=== PATIENT | male | born 1955 | race Caucasian/White ===

== ENCOUNTER → 2018-12-19 10:13 | Outpatient (CLI) | payer MEDICAID ==
[~2018-12-19 10:13] MED LIST: ALBUTEROL SULF8.5 GM INH; ALDACTONE25 MG PO; BAYER CHEWABLE81 MG PO; COREG 3.1253.125 MG PO; K-DUR20 MEQ PO; LASIX20 MG PO; LASIX40 MG PO; LIPITOR20 MG PO; PLAVIX75 MG PO
--- NOTE | 2018-12-24 09:28 | EC ---
PATIENT:KARIE ALARCON DATE OF SERVICE: 12/19/18 SEX: M MEDICAL RECORD: [id number] DATE OF : 53 [facility] AGE OF PATIENT: 63 ADMISSION DATE: 12/19/18 REFERRING PHYSICIAN: INTERPRETING PHYSICIAN: SABINA HOUSE MD ECHOCARDIOGRAM REPORT ECHO CHARGES 4 ECHO COMPLETE Date: 12/19/18 CLINICAL DIAGNOSIS: ANGINA/HARRIS H/O CAD/IN/HTN ECHOCARDIOGRAPHIC MEASUREMENTS (adult normal given) AC root (d.<3.7cm) 3.2 cm LV Septum d (<1.2 cm> 1.3 cm Valve Excursion 2.0 cm LV Septum (systole) 1.9 cm Left Atria (s.<4.0cm> 5.9 cm LVPW d(<1.2cm) 1.3 cm RV (d.<2.3cm) 2.9 cm LVPW (sytole) 1.6 cm LV diastole(<5.6CM) 6.7 cm MV E-F(>70mm/sec) cm LV systole 5.1 cm LVOT Diameter 2.2 cm MV exc.(>10mm) cm Est.ejection fraction (50-75%) % DOPPLER: LVIT cm/sec A cm/sec E 155 cm/sec LA cm/sec RVSP 55.2 mmHg LVOT 62.0 cm/sec AOP1/2T m/s Asc. Ao 109 cm/sec RVOT 44.0 cm/sec RA cm/sec PA 66.0 cm/sec AV Gradient Peak 4.8 mmHg AV Mean 3.0 mmHg AV Area 2.1 cm MV Gradient Peak 11.3 mmHg MV Mean 4.6 mmHg MV Area cm COMMENTS: OP - HC Workers' Compensation Magistrate: Vicky [place] Dental Receptionist: 1 Dr. House TAPE# PACS Pericardial Effusion Y DATE OF SERVICE: 12/19/2018 FINDINGS: 1. Left ventricular chamber size is dilated. Left ventricular systolic function is markedly reduced at 15% to 20%. 2. Left atrium, right atrium, right ventricular chamber sizes are dilated giving 4-chamber dilatation. Left atrium measures 5.9 cm. 3. Valvular structures have normal structure and motion. 4. Doppler interrogation reveals moderate mitral regurgitation, moderate tricuspid regurgitation, no other valvular insufficiency or stenosis. ECHOCARDIOGRAM REPORT [id number] KARIE ALARCON 5. Pericardial effusion is present. This is a small, not hemodynamically significant. No evidence of left ventricular thrombus. Pulmonary systolic pressure is elevated, estimated at 55 mmHg. TRANSINT:[id number] Voice Confirmation ID: [id number] DOCUMENT ID: [id number] SABINA HOUSE MD at 0928 CC: [id number] DICTATION DATE: 12/20/1825 CERAMICS TEST ENGINEER: 12/20/18 0857 [facility] CLI 12/19/18 [id number] [place] [address]
--- NOTE | 2018-12-24 09:28 | ST ---
PATIENT:KARIE ALARCON MEDICAL RECORD: [id number] SEX: M LOCATION:[facility] ORDER #: ADMISSION DATE: 12/19/18 AGE OF PATIENT: 63 REFERRING PHYSICIAN: INTERPRETING PHYSICIAN: SABINA RIVERA MD DATE OF SERVICE: 12/19/2018 PROCEDURE: Nuclear stress test. INDICATIONS: Angina and coronary artery disease, hypertension, shortness of breath. He was exercised on standard Lexiscan protocol with 33 mCi of sestamibi injected at peak stress, 11 mCi were used previously for rest images. FINDINGS: Gated SPECT reveals dilated cardiomyopathy and fixed perfusion defect inferiorly with decreased thickening and brightening inferiorly with ejection fraction in the 14% range. SPECT Imaging: Cardiolite was used as myocardial perfusion agent. There is fixed perfusion defect inferiorly and apically compatible with previous inferoapical myocardial infarction; however, there is reversible ischemia laterally. This includes the basal, mid, apical, lateral segments. Degree of reversibility is moderate to severe. The amount of myocardium involved is large between the defects. OVERALL IMPRESSION: Markedly abnormal nuclear stress test suggestive of an ischemic cardiomyopathy with ongoing lateral ischemia, suggestive of multivessel coronary artery disease. TRANSINT:[id number] Voice Confirmation ID: [id number] DOCUMENT ID: [id number] SABINA RIVERA MD at 0928 CC: NAHOMY URENA [id number] DICTATION DATE: 12/20/18 0832 AUTOMATIC NAILING MACHINE FEEDER: 12/20/18 2216 [facility] CLI 12/19/18 [id number] [place] [address]
[2019-01-07 09:37] VITALS: BMI 33.5
== END | disposition home or self-care (01) ==
LOC: D.HCCECHO 10:13
PROVIDERS: ATTEND Internal Medicine Interventional Cardiology
DX: R06.00 Dyspnea, unspecified (principal); I25.119 Atherosclerotic heart disease of native coronary artery with unspecified angina pectoris

== ENCOUNTER 2019-01-07 08:39 | Outpatient (CLI) | payer MEDICAID ==
[~2019-01-07] VITALS: Ht 172.7 cm; Wt 100.0 kg
--- NOTE | ~2019-01-07 | OP ---
PATIENT NAME: KARIE ALARCON MEDICAL RECORD: [id number] :53 LOCATION:[facility] ADMISSION DATE: SURGEON: SABINA RIVERA MD DATE OF OPERATION: 01/07/2019 PROCEDURES: 1. PTCA stent left anterior descending and left anterior descending diagonal. 2. Percutaneous transluminal coronary angioplasty stent of left circumflex. 3. Left heart catheterization. 4. Selective coronary angiography. 5. Left ventriculogram. INDICATION: Unstable angina, coronary artery disease, and cardiomyopathy. PROCEDURE IN DETAIL: After informed consent was obtained and after a detailed description of risks, benefits as well as alternative therapies, the patient elected to proceed with angiogram and angioplasty. The right radial area was prepped and draped in normal sterile fashion. Right radial artery was cannulated via modified Seldinger technique with placement of 6-Swedish sheath. All catheters exchanged through this sheath. FINDINGS: Left ventriculogram was performed in standard 30-degree CASTORENA view, reveals global hypokinesis, ejection fraction of 15%. SELECTIVE CORONARY ANGIOGRAPHY: 1. Left main is with no significant angiographic disease. 2. Left anterior descending has a 99% stenosis of the LAD diagonal, 90% stenosis of the LAD. 3. Left circumflex has 95% stenosis in mid vessel. 4. Right coronary has moderate diffuse disease. This is a nondominant RCA. PTCA STENT OF THE LEFT CIRCUMFLEX: The stent used was 3.5 x 15 mm Henry. Result was 0% residual stenosis. PTCA STENT OF THE LAD AND LAD DIAGONAL: The LAD was addressed with a 3.0 x 18 mm Henry. The diagonal with a 2.0 x 15 mm Henry. Result was 0% residual stenosis. OVERALL IMPRESSION: Successful PTCA stent of the LAD and circumflex, both going from 95% to 99% initial stenosis to 0% residual. TRANSINT:[id number] Voice Confirmation ID: [id number] DOCUMENT ID: [id number] SABINA RIVERA MD CC: [id number] DICTATION DATE: 01/07/19 1300 MUSEUM GUIDE: 01/07/[address] [facility] [address] [place] [address]
--- NOTE | ~2019-01-07 | HP ---
PATIENT: KARIE ALARCON MEDICAL RECORD: [id number] ACCOUNT: [id number] LOCATION:[facility] : 53 ADMISSION DATE: 01/07/19 PCP: NAHOMY URENA HISTORY AND PHYSICAL EXAMINATION DIAGNOSES: 1. Angina. 2. Congestive heart failure. 3. Cardiomyopathy. 4. Hypertension. 5. Smoking history. 6. Chronic obstructive pulmonary disease. 7. Past history of myocardial infarction, percutaneous transluminal coronary angioplasty stent. HISTORY OF PRESENT ILLNESS: This is a gentleman who presents with anginal symptomatology, underwent stress testing revealing severe cardiomyopathy, ejection fraction 15% with reversible ischemia laterally, perfusion defect inferiorly, apically as well. His last myocardial infarction, PTCA stent was approximately 6 years ago. He continues to have anginal symptomatology, shortness of breath and heart failure symptomatology. He is now brought for cardiac catheterization. REVIEW OF SYSTEMS: The patient reports easy bruising but reports no swollen glands. The patient reports no fever, no night sweats, no significant weight gain, no significant weight loss. No significant exercise tolerance. The patient reports no dry eyes, no irritation, no vision change. Patient reports no difficulty hearing and no ear pain. Patient reports no frequent nose bleeds or nose and sinus problems. Patient reports on arm pain on exertion. No shortness of breath while lying down. No history of heart murmur. Patient reports no cough, no wheezing or coughing up blood. Patient reports no abdominal pain, no vomiting. Normal appetite. No diarrhea and not vomiting blood. No nausea and no constipation. Patient reports no incontinence. No difficulty urinating. No hematuria. No increased frequency. Patient reports no muscle aches. No weakness, no arthralgias, no back pain. No swelling of the extremities. Patient reports no abnormal mole, no jaundice, no rashes. Reports no loss of consciousness. No weakness and no numbness. No seizures, dizziness, or headaches. The patient reports no depression, no sleep disturbance, feeling safe in a relationship and no alcohol abuse. Patient reports on fatigue. Reports no runny nose or sinus pressure. No itching, no hives, and no frequent sneezing. PHYSICAL EXAMINATION: CONSTITUTIONAL/GENERAL APPEARANCE: Well nourished, well developed, appears stated age. EYES: Lids and conjunctivae noninjected. No discharge. No pallor. ENT: Lips within normal limit. No cyanosis. No pallor. NECK: Carotid arteries, bilateral normal upstroke. No bruits. No thrills. No jugular venous pressure or distention. CERVICAL LYMPH NODES: Nontender. Nonenlarged. THYROID: Not enlarged. No nodules. CARDIOVASCULAR: Precordial exam, nondisplaced. No heaves or pericardial thrills. Rate and rhythm, regular. Heart sounds, normal S1, normal S2. No S3, no gallop, no rub. Systolic murmur, not heard. Diastolic murmur, not heard. RESPIRATORY: Respiratory effort, unlabored. Normal curvature. No thoracic HISTORY AND PHYSICAL [id number] AGNES,KARIE OCHOA deformity. No chest wall tenderness. Percussion, resonant. Auscultation, clear. No wheezes, no rales, no rhonchi. ABDOMEN: Soft, nondistended, nontender. No abdominal pain, no vomiting and normal appetite. MUSCULOSKELETAL: No joint tenderness, normal gait, normal tone. SKIN: Warm and dry. OVERALL IMPRESSION: Anginal symptomatology in a patient with a past history of coronary artery disease and abnormal nuclear stress test, most likely he does have hemodynamically significant coronary artery disease. We will proceed with coronary angiography. TRANSINT:[id number] Voice Confirmation ID: [id number] DOCUMENT ID: [id number] SABINA RIVERA MD CC: [id number] DICTATION DATE: 01/07/19 1224 INDIGO VAT TENDER CLOTH: 01/07/19 1311 [facility] [address] [place] [address]
--- NOTE | ~2019-01-07 | HEMODYNAMI ---
PATIENT:KARIE ALARCON OCHOA MEDICAL RECORD: [id number] : 53 LOCATION:[facility] ADMISSION DATE: 01/07/19 Generatedon:01/07/201913:02 Patient name: KARIE ALARCON Patient #: [id number] SSN: : 1955 Date of study: 01/07/2019 Page: Of Hemodynamic Procedure Report Patient Data Patient Demographics Procedure consent was obtained First Name: KARIE Gender: Male Last Name: AGNES : 1955 [facility] Initial: OCHOA Age: 63 year(s) Patient #: [id number] Race: Unknown Additional ID: [id number] Contact details Address: [address] [place] [address] State: [place] City: [place] Zip code: [address] Past Medical History Performed procedures and imaging results Date Procedure Procedure Results Comments Stress testing Positive->Intermediate with SPECT MPI risk Allergies: No known allergies Admission Admission Data Admission Date: 01/07/2019 Admission Time: 8:39 Arrival Date: 01/07/2019 Arrival Time: 0:00 Admit Source: Other Insurance Payor: Private health insurance [facility] #: [id number] Height (in.): 68 BSA: 2.13 (m2) Height (cm.): 172.72 BMI: 33.52 (kg/m2) Weight (lbs.): 220.46 Weight (kg.): 100 Lab Results Lab Result Date: 01/07/2019 Lab Result Time: 0:00 Biochemistry Name Units Result Min Max BUN mg/dl 16 --(---*)-- 7 18 Creatinine mg/dl 0.8 --(-*--)-- 0.6 1.3 eGFR ml/min 90 --(*---)-- 90 120 NONAFRICAN CBC Name Units Result Min Max Hematocrit % 49.7 --(--*-)-- 42 54 Hemoglobin g/dl 15.4 --(-*--)-- 13.5 17.5 Procedure Procedure Types Cath Procedure Diagnostic Procedure [facility] w/Coronaries Sedation Charges Moderate Sedation up to 15 minutes PCI Procedure Coronary Stent Coronary Stent Initial x2 Coronary Stent Additional Procedure Description Procedure Date Procedure Date: 01/07/2019 Procedure Start Time: 12:28 Procedure End Time: 13:01 Procedure Staff Name Function Walker House MD Performing Physician Kevin Espino RT Overweaver Corine Pace RT Monitor Brenda Singh RT Monitor Nghia Mijares RT Scrub Lexy Newton RT Scrub Perry Sands RN Nurse Indication Angina Procedure Data Cath Procedure Fluoroscopy Diagnostic fluoroscopy Total fluoroscopy Time: 9 time: 9 min min Diagnostic fluoroscopy Total fluoroscopy dose: dose: 1272 mGy 1272 mGy Contrast Material Contrast Material Type Amount (ml) Isovue 370 154 Entry Location Entry Primary Successful Side Size Upsize Upsize Entry Closure Lott ccessful Closure Location (Fr) 1 (Fr) 2 (Fr) Remarks Device Remarks Radial Right 6 Fr Mechanical artery Short Compression Estimated blood loss: 10 ml Diagnostic catheters Device Type Used For End Catheter Placement DIAGNOSTIC Garland 110cm 5 Procedure Fr catheter ([id number]) Procedure Complications No complications Procedure Medications Medication Administration Route Dosage 0.9% NaCl I.V. 100 ml/hr Oxygen etCO2 Nasal cannula 2 l/min Heparin Flush Bag added to field 2 bags (1000units/500ml NS) Lidocaine 2% added to field 20 Radial Cocktail added to field 1 syringe (Verapamil 2mg/Nitro 400mcg/Heparin 1500units) Versed I.V. 1 mg Fentanyl I.V. 50 mcg Radial Cocktail I.A. 1 syringe (Verapamil 2mg/Nitro 400mcg/Heparin 1500units) Versed I.V. 1 mg Fentanyl I.V. 50 mcg Heparin Bolus I.V. 4000 units Integrilin (Bolus I.V. 9 ml 2mg/ml) Integrilin (Bolus wasted 1 ml 2mg/ml) Plavix P.O. 600 mg Hemodynamics Rest BSA: 2.13 (m2) HGB: 15.4 (g/dl) O2 Consumption: Estimated: 282.07 (ml/min) O2 Co nsumption indexed: Estimated:132.43 (ml/min/m) Heart Rate: 111 (bpm) Snapshots Pre Cath Intra NCS Post Cath Vital Signs Time Heart Resp SPO2 etCO2 NIBP (mmHg) Rhythm Pain Sedation Rate (ipm) (%) (mmHg) Status Level (bpm) 12:23:15 129 27 97 28.6 144/98(115) NSR 0 (11) 10(A) , No pain 12:27:19 107 20 97 36.2 131/95(110) NSR 0 (11) 10(A) , No pain 12:31:30 105 20 96 37 132/85(102) NSR 0 (11) 10(A) , No pain 12:35:38 107 19 94 13.5 124/82(103) NSR 0 (11) 10(A) , No pain 12:39:44 105 18 94 41.5 113/76(88) NSR 0 (11) 9(A) , No pain 12:43:52 107 26 94 41.4 121/79(96) NSR 0 (11) 9(A) , No pain 12:48:04 106 23 95 27.9 126/77(102) NSR 0 (11) 9(A) , No pain 12:52:12 107 25 96 38.4 140/92(117) NSR 0 (11) 9(A) , No pain 12:56:24 105 25 96 38.4 143/91(113) NSR 0 (11) 10(A) , No pain 13:00:37 106 25 96 38.4 140/90(112) NSR 0 (11) 10(A) , No pain Medications Time Medication Route Dose Verified Delivered Reason Not es Effectiveness by by 12:24:25 0.9% NaCl I.V. 100 Perry Perry Per physician ml/hr Shavon Sands RN RN 12:24:35 Oxygen etCO2 2 l/min Perry Perry for low 02 sats Nasal Lorigan Lorirma cannula RN RN 12:24:47 Heparin Flush added 2 bags Perry Perry used for Bag to Lorigan Lorigan procedure (1000units/500ml RN RN NS) 12:24:58 Lidocaine 2% added 20ml Perry Perry for local to vial Lorigan Lorigan anesthetic field GAMEZ RN 12:25:07 Radial Cocktail added 1 Eprry Perry used for (Verapamil to syringe Lorigan Lorigan procedure 2mg/Nitro RN RN 400mcg/Heparin 1500units) 12:27:37 Versed I.V. 1 mg Perry Perry for sedation Shavon Sands RN RN 12:27:46 Fentanyl I.V. 50 mcg Perry Perry for sedation Shavon Sands RN RN 12:30:22 Radial Cocktail I.A. 1 Perry Walker for (Verapamil syringe Shavon House MD vasodilation 2mg/Nitro RN 400mcg/Heparin 1500units) 12:30:30 Versed I.V. 1 mg Perry Perry for sedation Shavon Sands RN RN 12:30:35 Fentanyl I.V. 50 mcg Perry Perry for sedation Shavon Sands RN RN 12:36:29 Heparin Bolus I.V. 4000 Perry Perry for units Shavon Sands anticoagulation RN RN 12:36:49 Integrilin I.V. 9 ml Perry Perry for (Bolus 2mg/ml) Shavon Sands antiplatelet RN RN therapy 12:37:01 Integrilin wasted 1 ml Perry Perry to sharp's (Bolus 2mg/ml) Shavon Sands RN RN 12:55:48 Plavix P.O. 600 mg Perry Perry for Shavon Sands antiplatelet RN RN therapy Procedure Log Time Note 12:03:24 Procedure Status Elective Heart Cath (OP). 12:05:06 Time tracking: Regular hours (M-F 7:00 - 5:00) 12:05:11 Plan of Care:Hemodynamics will remain stable., Cardiac rhythm will remain stable., Comfort level will be maintained., Respiratory function will remain adequate., Patient/ family verbilizes understanding of procedure., Procedure tolerated without complication., Recovers from procedure without complications.. 12:05:18 Nghia NIXON(R) sent for patient. Start room use. 12:06:08 Stress Test: yes; abnormal multivessel 12:06:13 Risk of Mortality: .1 12:06:20 Risk of blood transfusion: 0.7 12:06:24 Risk of DENIS: 0.2 12:08:19 Diagnostic Cath Status : Elective 12:08:44 Indication : Angina 12::18 Lab Result : BUN 16 mg/dl 12::18 Lab Result : Hemoglobin 15.4 g/dl 12::18 Lab Result : eGFR NONAFRICAN 90 ml/min 12::18 Lab Result : Creatinine 0.8 mg/dl 12::18 Lab Result : Hematocrit 49.7 % 12:09:24 Arrival Date: 01/07/2019 12:00:00 AM 12:09:26 Admit Source: Other 12:09:31 Insurance Payor : Private health insurance 12:09:35 Patient Height : 68 inches 12:09:40 Patient Weight : 220.46 lbs 12:10:14 H&P Date Dictated: 01/07/2019 New H&P dictated by physician.. 12:10:28 Patient allergic to No known allergies 12:13:34 Patient received from Pre/Post Procedure Room to CCL 1 Alert and oriented. Tansferred to table in Supine position. 12:13:38 Signed procedure consent form obtained from patient. 12:13:39 Warm blankets applied, and julian hugger turned on for patient comfort. 12:13:40 Correct patient and procedure confirmed by team. 12:13:46 Alarms reviewed by R. N. 12:13:47 Sharps counted by scrub and verified by R.N. 12:20:14 Snore? Yes 12:20:16 Sleep apnea? No 12:20:18 Deviated septum? No 12:20:20 Opens mouth fully? Yes 12:20:21 Sticks out tongue? Yes 12:20:27 Airway obstruction? Yes COPD 12:20:34 Dentures? Yes IN TIGHT 12:20:39 Previous problem with sedation/anesthesia? No ? 12:20:49 Patient diabetic? Yes. 12:20:51 If diabetic: On Metformin? No 12:20:56 Family in waiting room. 12:20:59 Patient NPO since Midnight. 12:21:01 Is the patient allergic to Iodine/contrast media? No. 12:21:03 Was the patient premedicated? Yes 12:21:06 Is patient on blood thinner?No 12:21:32 IV patent on arrival in left antecubital with 0.9% NaCl at [facility]. 12:21:38 Lab results completed and on chart. 12:21:50 Pre procedure: right dorsailis pedis pulse 2+ Normal; easily identifiable; not easily obliterated 12:21:56 Modified Tanner's test Ulnar < 7 seconds 12:22:01 Patient pain scale 0/10 ?. 12:22:06 ECG and BP/O2 sat monitors applied to patient. 12:22:07 Vital chart was started 12:22:26 Full Disclosure recording started 12:22:43 Rhythm: sinus tachycardia 12:23:12 Pre-procedure instructions explained to patient. 12:23:14 Pre-op teaching completed and patient verbalized understanding. 12:23:37 Baseline sample Acquired. 12:24:00 Right Radial & Right Groin area was prepped with chlora-prep and draped in sterile fashion 12:24:10 Use device set Radial Dx or PCI 12:24:12 ACIST Syringe (91053) opened to sterile field. 12:24:13 Medline Cath Pack ([id number]) opened to sterile field. 12:24:14 Bag Decanter (2002S) opened to sterile field. 12:24:15 ACIST Hand Control (29140) opened to sterile field. 12:24:16 ACIST Manifold (08241) opened to sterile field. 12:24:17 Tegaderm 4 x 4 (1626W) opened to sterile field. 12:24:19 MBrace Wrist Support ([id number]) opened to sterile field. 12:24:21 EMERALD Guide Wire (195-504) opened to sterile field. 12:24:22 SHEATH 6FR RAIN (9483953) opened to sterile field. 12:24:25 0.9% NaCl 100 ml/hr I.V. was administered by Perry Sands RN; Per physician; Verbal order read back and verified. 12:24:35 Oxygen 2 l/min etCO2 Nasal cannula was administered by Perry Sands RN; for low 02 sats; Verbal order read back and verified. 12:24:47 Heparin Flush Bag (1000units/500ml NS) 2 bags added to field was administered by Perry Sands RN; used for procedure; Verbal order read back and verified. 12:24:58 Lidocaine 2% 20ml vial added to field was administered by Perry Sands RN; for local anesthetic; Verbal order read back and verified. 12:25:07 Radial Cocktail (Verapamil 2mg/Nitro 400mcg/Heparin 1500units) 1 syringe added to field was administered by Perry Sands RN; used for procedure; Verbal order read back and verified. 12:26:14 --------ALL STOP TIME OUT------ 12:26:15 Final Timeout: patient, procedure, and site verified with staff and physician. All members of the team are in agreement. 12:26:17 Right Radial & Right Groin site verified by team. 12:26:23 Fire Safety Assessment: A--An alcohol-based skin anteseptic being used preoperatively., C--Open oxygen or nitrous oxide is being used., D--An ESU, laser, or fiber-optic light is being used. 12::28 Physical assessment completed. ASA score P 2 - A patient with mild systemic disease as per Walker House MD. 12::31 1) 90+ Normal kidney functon but urine findings or structural abnormalities or genetic trait point to kidney disease. 12:26:34 Maximum allowable contrast dose (3.7 X eGFR X 0.75)250 ml. 12::39 Sedation plan: IV Moderate Sedation Medication:Versed, Fentanyl 12:27:37 Versed 1 mg I.V. was administered by Perry Sands RN; for sedation; Verbal order read back and verified. 12:27:46 Fentanyl 50 mcg I.V. was administered by Perry Sands RN; for sedation; Verbal order read back and verified. 12:28:09 Procedure started. 12:28:19 Local anesthetic to right radial artery with Lidocaine 2% by Walker House MD.INITIAL ACCESS ONLY 12:29:38 A 6 Fr Short sheath was inserted into the Right Radial artery 12:29:48 A DIAGNOSTIC Garland 110cm 5 Fr catheter ([id number]) was advanced over the wire and used for Procedure. 12:30:22 Radial Cocktail (Verapamil 2mg/Nitro 400mcg/Heparin 1500units) 1 syringe I.A. was administered by Walker House MD; for vasodilation; Verbal order read back and verified. 12:30:30 Versed 1 mg I.V. was administered by Perry Sands RN; for sedation; Verbal order read back and verified. 12:30:35 Fentanyl 50 mcg I.V. was administered by Perry Sands RN; for sedation; Verbal order read back and verified. 12:30:48 LV gram done using CASTORENA 12:30:54 Injector settings: Ml/sec: 5, Volume: 15, 12:31:09 EF : 15 % 12::23 LCA angiography performed. 12:32:03 RCA angiography performed. 12::39 INFLATOR Merit BasixCompak (UT6012) opened to sterile field. 12:32:40 CHOICE PT Extra Support 182cm wire ([id number]) opened to sterile field. 12:33:05 GUIDE 6FR XBLAD 4.0 catheter ([id number]) opened to sterile field. 12:33:23 ACCDominant side:Left 12:33:27 Catheter removed. 12:33:30 Proceeding to intervention. 12:34:00 Pre PCI Site: [facility] mLAD has 90% stenosis. 12:34:00 Pre PCI Site: [facility] [facility] Diag1 has 99% stenosis. 12:34:18 6 Fr XBLAD 4 guide catheter was inserted over the wire 12:36:26 Pre PCI Site: [facility] LMCA has ?% stenosis. 12:36:29 Heparin Bolus 4000 units I.V. was administered by Perry Sands RN; for anticoagulation; Verbal order read back and verified. 12:36:41 Pre PCI Site: [facility] mCirc has 99% stenosis. 12:36:49 Integrilin (Bolus 2mg/ml) 9 ml I.V. was administered by Perry Sands RN; for antiplatelet therapy; Verbal order read back and verified. 12:36:51 CHOICE ES 182 wire advanced. 12:36:53 Wire advanced across lesion. 12:37:01 Integrilin (Bolus 2mg/ml) 1 ml wasted was administered by Perry Sands RN; to sharp's; Verbal order read back and verified. 12:37:47 The LANDON RX 3.5 x 12 stent ([id number]) was advanced then removed because of failure to cross lesion 12:39:08 Inflate balloon Inflation number: 1 A EUPHORA 3.0 x 15 Balloon ([id number]) was prepped and advanced across the Mid CX , then inflated to 17 MYRNA for 0:00 (min:sec) . 12:39:21 Inflation number: 2 The EUPHORA 3.0 x 15 Balloon ([id number]) was reinflated across the Mid CX , to 17 MYRNA for 0:00 (min:sec) . 12:39:47 Balloon removed over the wire. 12:40:51 Place stent Inflation Number: 3 A LANDON RX 3.5 x 12 stent ([id number]) was prepped and advanced across the Mid CX . The stent was deployed at 17 MYRNA for 0:00 (min:sec) . 12:41:11 Stent catheter was removed intact over wire. 12:41:25 Wire redirected to LAD. 12:43:43 The LANDON RX 3.0 x 18 stent ([id number]) was advanced then removed because of failure to cross lesion 12:44:06 CHOICE PT Extra Support 182cm wire ([id number]) opened to sterile field. 12:44:18 CHOICE ES 182 wire advanced. 12:44:53 WIRE ADVANCED ACROSS DIAG. 12:47:20 Inflate balloon Inflation number: 1 A EUPHORA 1.5 x 12 balloon ([id number]) was prepped and advanced across the 1st Diag , then inflated to 21 MYRNA for 0:00 (min:sec) . 12:47:37 Inflation number: 2 The EUPHORA 1.5 x 12 balloon ([id number]) was reinflated across the 1st Diag , to 21 MYRNA for 0:00 (min:sec) . 12:47:53 Balloon removed over the wire. 12:49:29 Place stent Inflation Number: 3 A LANDON RX 2.0 x 15 stent ([id number]) was prepped and advanced across the 1st Diag . The stent was deployed at 17 MYRNA for 0:00 (min:sec) . 12:50:02 WIRE REMOVED FROM DIAG. 12:51:00 Place stent Inflation Number: 1 A LANDON RX 3.0 x 18 stent ([id number]) was prepped and advanced across the Mid LAD . The stent was deployed at 15 MYRNA for 0:00 (min:sec) . 12:51:24 Stent catheter was removed intact over wire. 12:51:25 Wire removed. 12:51:26 Guide catheter removed. 12:51:39 ZEPHYR REGULAR TR BAND (155654) opened to sterile field. 12:51:54 Sheath removed intact; hemostasis achieved with Mechanical Compression to the Right Radial artery. 12:52:29 Procedure ended.(Physican Out) 12:52:47 Fluoroscopy time 09.00 minutes. 12:53:03 Flurop Dose total: 1272 12:53:03 Fluoroscopy dose: 1272 mGy 12:53:09 Dose Area Product 53981 mGy/cm. 12:53:21 Contrast amount:Isovue 370 154ml. 12:53:24 Maximum allowable dose exceeded? No. 12:53:25 Sharps counted by scrub and verified by R.N. 12:53:32 Mecca band inflated with 10cc of air. 12:53:48 Post Procedure Pulses reassessed and unchanged 12:53:54 Post procedure: right dorsailis pedis pulse 2+ Normal; easily identifiable; not easily obliterated. 12:53:58 Post-procedure physical assessment completed. ASA score P 2 - A patient with mild systemic disease as per Walker House MD. 12:54:02 Post procedure rhythm: unchanged. 12:54:06 Estimated blood loss: 10 ml 12:54:08 Post procedure instruction explained to patient.Patient verbalizes understanding. 12:54:14 Patient needs reinforcement of post procedure teaching. 12:55:48 Plavix 600 mg P.O. was administered by Perry Sands RN; for antiplatelet therapy; Verbal order read back and verified. 12:57:16 Procedure type changed to Cath procedure, Diagnostic procedure, LHC, [facility] w/Coronaries, Sedation Charges, Moderate Sedation up to 15 minutes, PCI procedure, Coronary Stent, Coronary Stent Initial x2, Coronary Stent Additional 12:57:31 ACT drawn and resulted at 244 seconds. (normal therapeutic range 180-240 seconds). 12:57:38 Procedure and supply charges have been captured, reviewed, submitted and are correct. 12:58:40 Procedure Complication : No complications 12:58:49 [facility] Findings: MVD- PCI performed (see procedure note) 12:58:51 Operative report dictated upon procedure completion. 12:58:52 See physician's report for complete and final results. 12:58:54 Report given to Pre/Post Procedure Room. 12:59:00 Patient transfered to Pre/Post Procedure Room with Stretcher. 13:01:08 Vital chart was stopped 13:01:14 Procedure ended. 13:01:14 Full Disclosure recording stopped 13:01:21 ACC-PCI Only Patient was given prescriptions, or instructed by Walker House MD to start/continue the following medications upon discharge: Plavix 13:01:23 End room use (Document Last) 13:01:40 End room use (Document Last) 13:01:57 End room use (Document Last) Intervention Summary Intervention Notes Time ActionType Lesion and Equipment Used Action# Pressure Duration Attributes 12:37:47 Discard LANDON RX 3.5 x Stent 12 stent ([id number]) 12:39:08 Inflate Mid CX EUPHORA 3.0 x 1 17 00:00 balloon 15 Balloon ([id number]) 12:39:21 Reinflate Mid CX EUPHORA 3.0 x 2 17 00:00 balloon 15 Balloon ([id number]) 12:40:51 Place stent Mid CX LANDON RX 3.5 x 3 17 00:00 12 stent ([id number]) 12:43:43 Discard LANDON RX 3.0 x Stent 18 stent ([id number]) 12:47:20 Inflate 1st Diag EUPHORA 1.5 x 1 21 00:00 balloon 12 balloon ([id number]) 12:47:37 Reinflate 1st Diag EUPHORA 1.5 x 2 21 00:00 balloon 12 balloon ([id number]) 12:49:29 Place stent 1st Diag LANDON RX 2.0 x 3 17 00:00 15 stent ([id number]) 12:51:00 Place stent Mid LAD LANDON RX 3.0 x 1 15 00:00 18 stent ([id number]) Device Usage Item Name Manufacture Quantity Catalog Number [facility] Part Current M inimal Lot# / Charge Number Stock Stock Serial# Code ACIST Syringe Acist 1 69514 328856 721900 952425 2 0 (67892) Medical Systems Inc Medline Cath Medline 1 [id number] 427008 59182 634912 5 Pack ([id number]) Bag Decanter Microtek 1 185251 48320 170749 5 () Medical Inc. ACIST Hand Acist 1 90886 150106 852289 185970 5 Control Medical (19786) Systems Inc ACIST Manifold Acist 1 65302 127805 933400 222784 5 (63066) Medical Systems Inc Tegaderm 4 x 4 3M 1 1626W 639397 515241 514637 5 (1626W) MBrace Wrist Advanced 1 140-0250-00 561128 56698 769889 5 Support Vascular ([id number]) Dynamics EMERALD Guide Cardinal 1 791-756 763279 684874 848274 5 Wire (137-779) Health SHEATH 6FR Cardinal 1 0924705 162832 7724764 410153 5 RAIN (0648396) Health DIAGNOSTIC Terumo 1 40-9583 125841 820934 566456 5 Garland 110cm 5 Fr catheter (862639) INFLATOR Merit Merit 1 KN6076 988197 386559 045178 1 5 Netops TechnologySt. Mark'S HospitalRed Loop Media [facility] ([id number]) CHOICE PT [place] 2 [id number] 243635 580213 254219 5 Extra Support Scientific 182cm wire ([id number]) GUIDE 6FR Cardinal 1 [id number] 696008 501497 796305 3 XBLAD 4.0 Health catheter (74219635) LANDON RX 3.5 x Medtronic 1 [id number] 756352 5634189 388802 5 [id number] 12 stent ([id number]) EUPHORA 3.0 x Medtronic 1 [id number] 041748 512179 637825 5 [id number] 15 Balloon ([id number]) LANDON RX 3.0 x Medtronic 1 [id number] 993725 8520519 947796 5 [id number] 18 stent ([id number]) EUPHORA 1.5 x Medtronic 1 [id number] 806521 385379 318277 5 [id number] 12 balloon ([id number]) LANDON RX 2.0 x Medtronic 1 [id number] 507121 3024233 281333 5 [id number] 15 stent ([id number]) ZEPHYR REGULAR Cardinal 1 676047 991204 3834882 495857 5 TR [facility] [employer] ([id number]) Signature Audit [place] Stage Time Signature Unsigned Intra-Procedure 01/07/2019 Perry 1:01:40 PM Shavon GAMEZ Intra-Procedure 01/07/2019 Brenda Singh 1:01:57 PM RT(R) Intra-Procedure 01/07/2019 Walker oHuse 1:02:15 PM [facility] [address] [facility] [place] [address]
[2019-01-07] MEDS ORDERED: ALBUTEROL SULF8.5 GM INH (09:20)
[2019-01-07] MEDS ORDERED: BAYER CHEWABLE81 MG PO (09:20)
[2019-01-07] MEDS ORDERED: COREG 3.1253.125 MG PO (09:21)
[2019-01-07] MEDS ORDERED: LIPITOR20 MG PO (09:21)
[2019-01-07] MEDS ORDERED: LASIX20 MG PO (09:22)
[2019-01-07] MEDS ORDERED: K-DUR20 MEQ PO (09:22)
[2019-01-07] MEDS ORDERED: ALDACTONE25 MG PO (09:23)
[2019-01-07 09:37] VITALS: BP 161/96; Ht 172.7 cm; Wt 100.0 kg
[2019-01-07 09:39] LABS: BASOPHILS 0.2 % (0-2); EOSINOPHILS 1.4 % (0-7); HEMATOCRIT 49.7 % (42.0-54.0); HEMOGLOBIN 15.4 g/dL (13.5-17.5); IMMATURE GRANULOCYTES 0.3 % (0-5); LYMPHOCYTES 29.2 % (15-50); MCH 25.8 pg (26.0-34.0); MCV 83.1 fL (80.0-100.0); MEAN PLATELET VOLUME 9.5 fL (7.4-10.4); MONOCYTES 7.5 % (2-11); NEUTROPHILS 61.4 % (40-80); PLATELET COUNT 267 10x3/uL (130-400); RBC 5.98 10x6/uL (4.20-6.10); RDW 15.9 % (11.5-14.5); WBC 8.8 10x3/uL (4.8-10.8)
[2019-01-07 09:47] LABS: CALC OSMOLALITY 275 mosm/kg (275-300); CALCIUM 9.3 mg/dL (8.5-10.1); CHLORIDE - SERUM 100 mmol/L (98-107); CREATININE - SERUM 0.8 mg/dL (0.6-1.3); GLUCOSE 187 mg/dL (74-106); POTASSIUM - SERUM 4.5 mmol/L (3.5-5.1); SODIUM 135 mmol/L (136-145); UREA NITROGEN 16 mg/dL (7-18); eGFR NON AFRICAN AMERICAN > 90 mL/min (90-120)
[2019-01-07] MEDS ORDERED: PLAVIX75 MG PO (13:14)
--- NOTE | 2019-01-07 13:15 | NUR ---
PT RECEIVED VIA STRETCHER FROM SOLUTION MAKER FOR RECOVERY. PT AWAKE BUT DROWSY. PT DENIES PAIN OR DISCOMFORT. PLACED PT ON CARDIAC MONITORS AND O2 VIA NC. IV PATENT INFUSING VIA ORDERS. ZYPHER BAND AND IMMOBILIZER TO R WRIST, DRESSING CDI. NO BLEEDING OR S/S OF HEMATOMA NOTED. ARM PINK AND WARM, CAP REFILL BRISK. PT INSTUCTED NOT TO USE R ARM OR HAND, HE VERBALIZED UNDERSTANDING. HR SINUS TACHY, RATE 111, BP 148/98, RR 18, SAT 99. CALL LIGHT IN REACH.
--- NOTE | 2019-01-07 13:45 | NUR ---
PT RESTING COMFORTABLY, DENIES PAIN OR DISCOMFORT. PT STATES HEARTBURN IS BETTER. HR 111, BP 155/88, SAT 100 ON 2L/NC. ZBAND AND IMMOBILIZER REMAINS IN PLACE, DRESSING CDI NO BLEEDING OR HEMATOMA NOTED. CAP REFILL REMAINS BRISK. CALL LIGHT IN REACH
--- NOTE | 2019-01-07 14:30 | NUR ---
PT RESTING COMFORTABLY WATCHING TV. DENIES PAIN OR NEEDS. VSS. Z BAND AND IMMOBILIZER IN PLACE, NO S/O HEMATOMA NOTED. ARM PINK AND WARM, CAP REFILL BRISK. HOB ELEVATED SLIGHTLY, SANDWICH TRAY SERVED. CALL LIGHT IN REACH.
--- NOTE | 2019-01-07 15:05 | NUR ---
PT SITTING UP WATCHING TV. PT TOLERATED SANDWICH W/O NAUSEA. R WRIST W Z BAND IN PLACE. DRESSING REMAIN CDI NO BLEEDING OR SWELLING NOTED. HR 111, BP 107/74, SAT 99 ON ROOM AIR, O2 REMOVED. CALL LIGHT IN REACH.
--- NOTE | 2019-01-07 15:30 | NUR ---
PT DOING WELL, DENIES PAIN OR NEEDS. Z BAND AND IMMOBILIZER IN PLACE. DRESSING REMAINS CDI NO BLEEDING OR SWELLING NOTED. VSS. FAMILY AT BEDSIDE, CALL LIGHT IN REACH
--- NOTE | 2019-01-07 15:55 | NUR ---
PT SITTING UP AND VISITING W FAMILY. 4CC AIR REMOVED FROM Z BAND W/O BLEEDING OR SWELLING NOTED. PT VOIDED 150 CC CLEAR URINE IN URINAL W/O DIFFICULITY. VSS. PT DENIES PAIN OR NEEDS. CALL LIGHT IN REACH
--- NOTE | 2019-01-07 16:34 | NUR ---
3 ADD'L CC AIR REMOVED FROM Z BAND. NO BLEEDING OR S/S HEMATOMA NOTED. VSS. PT DENIES PAIN OR DISCOMFORT. FAMILY REMAINS AT BEDSIDE, CALL LIGHT IN REACH
--- NOTE | 2019-01-07 16:40 | NUR ---
DR RIVERA AT , TALKED W PT AND FAMILY REGARDING PLAN OF CARE AND PROCEDURE RESULTS. PRESCRIPTION ADDED FOR LASIX 40MG BID. WILL ADD TO DISCHARGE INSTRUCTIONS AND MEDICATIONS REC.
[2019-01-07] MEDS ORDERED: LASIX40 MG PO (16:47)
--- NOTE | 2019-01-07 16:50 | NUR ---
DISCHARGE INSTRUCTIONS REVIEWED W PT AND SISTER, BOTH VERBALIZED UNDERSTANDING. IV REMOVED W CATH INTACT, MONITORS REMOVED AND PT UP TO DRESS FOR DISCHARGE. REMAINING AIR REMOVED FROM Z BAND W/O BLEEDING. NO S/S HEMATOMA NOTED.
--- NOTE | 2019-01-07 17:09 | NUR ---
1700 PT AMBULATED TO BR, VOIDING W/O DIFFICULITY. Z BAND REMOVED, NO BLEEDING OR HEMATOMA NOTED. 2X2 AND TEGADERM DRESSING APPLIED. PT DISCHARGED VIA WC TO SON WAITING IN PRIVATE VEHICLE. PT LEFT W ALL BELONGINGS AND DISCHARGE INFORMATION IN HAND.
== END 2019-01-07 17:05 | disposition home or self-care (01) ==
LOC: D.CATH 08:39
PROVIDERS: ATTEND Internal Medicine Interventional Cardiology
DX: I25.110 Atherosclerotic heart disease of native coronary artery with unstable angina pectoris (principal); I42.9 Cardiomyopathy, unspecified; I11.0 Hypertensive heart disease with heart failure; I50.9 Heart failure, unspecified; J44.9 Chronic obstructive pulmonary disease, unspecified; I25.2 Old myocardial infarction; Z95.5 Presence of coronary angioplasty implant and graft; R06.09 Other forms of dyspnea; E78.5 Hyperlipidemia, unspecified; Z87.891 Personal history of nicotine dependence